=== PATIENT | female | born 1965 | race Caucasian/White ===

== ENCOUNTER 2016-08-29 15:42 | Outpatient (RCR) | payer BC, OTHER ==
[~2016-08-29 15:42] MED LIST: ESTR0.5T PO; LACT1CAP8 PO; NF-ESOM40C PO; RNT150T PO
== END 2016-09-20 15:21 | disposition home or self-care (01) ==
PROVIDERS: ATTEND Nurse Practitioner Family
DX: M51.16 Intervertebral disc disorders with radiculopathy, lumbar region (principal)

== ENCOUNTER → 2016-09-12 | Outpatient (CLI) | payer BC, OTHER ==
--- NOTE | 2016-09-12 09:26 | Diagnostic Imaging Report ---
Bilateral diagnostic mammogram. INDICATION: Followup asymmetry in the posterior aspect of the left CC projection. CAD is utilized. COMPARISON: 02/17/2016. FINDINGS: The breasts are composed of heterogeneously dense parenchyma which may decrease mammographic sensitivity. There is less prominent oval asymmetry in the posterior aspect of the left CC projection. In the left MLO view in the central aspect there is an oval asymmetry which is evaluated with focal compression view. This demonstrates less prominent oval asymmetry, and the true lateral view demonstrates no definitive correlating lesion. The right breast demonstrates no definite abnormality. The retroareolar portion of each breast demonstrates mildly dense parenchyma. IMPRESSION: Subcentimeter asymmetries in the left breast in the posterior central aspect more prominent at this time on the left MLO view. Ultrasound evaluation pending. ACR BI-RADS Category 0: Incomplete. (Needs additional imaging evaluation). Result letter will be mailed to the patient. Note: At least 10% of breast cancer is not imaged by mammography. Dictated by: Dictated on workstation # [id number]
--- NOTE | 2016-09-12 19:14 | Diagnostic Imaging Report ---
EXAM: Left breast ultrasound. INDICATION: Asymmetry seen along the posterior aspect of the left breast. FINDINGS: Clusters of cysts are seen, one collectively measuring 6 x 4 x 2 mm seen in the 3 o'clock zone 4 cm from the nipple and retroareolar mild duct ectasia is noted. No mass or other lesion of suspicious appearance is identified in the four quadrants retroareolar area. IMPRESSION: No suspicious mass. The findings above do not necessarily explain the mammographic abnormalities which could be related to summation artifact of parenchyma. Six-month follow-up left breast mammogram is recommended based on the increased prominence of the asymmetry on the left MLO view to insure no adverse development. ACR BI-RADS Category 3: Probably benign findings. Result letter will be mailed to the patient. Note: At least 10% of breast cancer is not imaged by mammography. Dictated by: Dictated on workstation # [id number]
== END ==
LOC: RAD 08:19
PROVIDERS: ATTEND Nurse Practitioner Family
DX: R92.8 Other abnormal and inconclusive findings on diagnostic imaging of breast (principal)
CPT/HCPCS: 76641; 77066

== ENCOUNTER 2016-09-23 08:01 | Outpatient (CLI) | payer BC, OTHER ==
[~2016-09-23] VITALS: Ht 175.3 cm; Wt 76.7 kg
[2016-09-23] MEDS ORDERED: TRIAMCINOLONE ACET (KENALOG-40) 40 MG/ML 1 ML VIAL ONE (08:13)
[2016-09-23] MEDS ORDERED: BUPIVACAINE 0.25% 30 ML (SENSORCAINE) VIAL ONE (08:13)
[2016-09-23 08:28] VITALS: BP 134/88
[2016-09-23 08:52] VITALS: BP 140/92
--- NOTE | 2016-09-23 09:15 | Pain Medicine-Procedure ---
Procedure Pre-Op/Post-Op Diagnosis Diagnosis: Disc disorder with radiculopathy, lumbar Indications for Operation Low back pain Attending Surgeon Darshan Procedure Date of Service: Sep 23, 2016 Procedure: Lumbar Epidural Steroid Injection at the L4-L5 level under Fluoroscopic Guidance Procedure: Patient was identified in the holding area. After risks, benefits, and alternatives were discussed with the patient, informed consent was obtained. Patient was brought to the fluoroscopy suite and placed prone on the procedure room table. A time out was performed. Vital signs were monitored throughout the procedure. The patients low back was prepped and draped in the usual sterile fashion. The patients skin was anesthetized using 2% Lidocaine. A Tuohy needle was inserted and advanced to the L4-L5 epidural space under fluoroscopic guidance using the loss of resistance technique and intermittent projection of fluoroscopy. There was no paresthesia with needle placement. The needle position was confirmed in both the AP and lateral view. After negative aspiration 2ml of contrast was injected under live fluoroscopy which showed good spread of the contrast in the epidural space at the appropriate level, there was no intravascular or subarachnoid spread. Again, after negative aspiration for heme or CSF, 2 ml of 0.25% Bupivicaine, 2ml of preservative free normal saline, and 80mg of Kenalog was injected. The needle was removed and a sterile bandage was placed and the patient was transferred to the recovery area in stable condition. After a brief period of observation, patient was discharged to home with no new neurological deficits and no apparent complications. Complications None VARINDER LOCKWOOD MD Sep 23, 2016 9:15 am
== END 2016-09-23 08:53 ==
LOC: CARD 08:01
PROVIDERS: ATTEND Pain Medicine Pain Medicine
DX: M51.16 Intervertebral disc disorders with radiculopathy, lumbar region (principal)
CPT/HCPCS: 62323

== ENCOUNTER → 2017-04-12 | Outpatient (CLI) | payer BC ==
--- NOTE | 2017-04-13 09:22 | Diagnostic Imaging Report ---
Digital mammogram left diagnostic. INDICATION: Followup exam. The bilateral diagnostic mammogram performed on 09/12/2016, noted a subcentimeter asymmetry in the posterior central aspect of the left breast. This is only well visualized on the MLO view. The ultrasound examination of this area performed on the same day failed to show any discrete solid or cystic mass. On this exam the asymmetric density in question is less conspicuous on the MLO view. It still cannot be identified with certainty on a small cyst which is subsequently resolved. The appearance of the left breast is otherwise no different. There is no primary or secondary sign of malignancy noted. IMPRESSION: 1. There is no evidence for malignancy. 2. The patient should have her annual bilateral screening mammogram on schedule in September of 2017. ACR BI-RADS Category 1: Negative. Result letter will be mailed to the patient. Note: At least 10% of breast cancer is not imaged by mammography. Dictated by: Dictated on workstation # [id number]
== END ==
LOC: RAD 14:32
PROVIDERS: ATTEND Nurse Practitioner Family
DX: N60.02 Solitary cyst of left breast (principal)

== ENCOUNTER → 2017-09-06 | Outpatient (CLI) | payer BC ==
--- NOTE | 2017-09-06 15:37 | Diagnostic Imaging Report ---
PROCEDURE: US Abdomen, limited. TECHNIQUE: Multiple realtime grayscale images were obtained over the abdomen in various projections. INDICATION: Left groin pain. FINDINGS: Sonographic interrogation of the left groin was performed both with and without Valsalva maneuver. No definite inguinal hernia is seen. No mass or fluid collection is detected. IMPRESSION: Unremarkable left groin ultrasound. Dictated by: Dictated on workstation # [id number]
== END ==
LOC: RAD 14:50
PROVIDERS: ATTEND Nurse Practitioner Family
DX: R10.30 Lower abdominal pain, unspecified (principal)
CPT/HCPCS: 76705

== ENCOUNTER 2019-08-26 05:50 | Outpatient (CLI) | payer BC ==
[~2019-08-26] VITALS: Ht 175.3 cm; Wt 74.5 kg
[2019-08-26] MEDS ORDERED: LACT1CAP28 PO (10:20)
[2019-08-26] MEDS ORDERED: ESOM40CA52 PO (10:20)
[2019-08-26] MEDS ORDERED: FLUT1DIS26 IH (10:25)
[2019-08-26] MEDS ORDERED: RT-ALBUINH IH (10:25)
[2019-08-26] MEDS ORDERED: CELE200C PO (10:25)
[2019-08-28] MEDS ORDERED: ACHD5005 PO (11:24)
== END 2019-08-26 10:29 | disposition home or self-care (01) ==
LOC: PREOP 05:50
PROVIDERS: ATTEND Surgery
DX: Z01.818 Encounter for other preprocedural examination (principal)

== ENCOUNTER 2020-10-17 21:24 | Emergency (ER) | payer SELFPAY ==
[~2020-10-17] VITALS: Ht 175.3 cm; Wt 72.5 kg
[~2020-10-17 21:24] MED LIST changes: +ACHD5005 PO; +CELE200C PO; +ESOM40CA52 PO; +FLUT1DIS26 IH; +LACT1CAP28 PO; +RT-ALBUINH IH
[2020-10-17 21:45] VITALS: BP 129/83
--- NOTE | 2020-10-17 22:08 | ED Integumentary General ---
General Stated Complaint: R LEG LACERATION Source: patient Exam Limitations: no limitations History of Present Illness Date Seen by Provider: Oct 17, 2020 Time Seen by Provider: 21:45 Initial Comments This is a well-appearing 55-year-old female who presents to the ER with complaints of bleeding varicose vein. States her cat accidentally scratched her causing her varicose vein to bleed and she has not been able to stop the bleeding with direct pressure. States incident occurred approximately 30 minutes prior to arrival. Has no other complaints. Does not take any anticoagulants or aspirin. Timing/Duration: just prior to arrival Allergies and Home Medications Allergies Coded Allergies: aspirin (Verified Allergy, Unknown, HIVES, CAN TAKE IBUPROFEN, 03/14/06) Home Medications Albuterol Sulfate 1 Puff Puff, 2 PUFF IH Q4H PRN for WHEEZING, (Reported) 1 PUFF = 90 MCG Celecoxib Unknown Strength Capsule, 1 TAB PO DAILY, (Reported) Esomeprazole Magnesium 40 Mg Capsule.dr, 40 MG PO DAILY, (Reported) Fluticasone/Salmeterol 1 Each Blst.w.dev, 1 EACH IH DAILY, (Reported) Hydrocodone Bit/Acetaminophen 1 Tab Tab, 1 TAB PO Q6H PRN for PAIN-MODERATE Prescribed by: BRANDY SORENSON on 08/28/19 1124 Lactobacillus Acidophilus 1 Each Capsule, 1 EACH PO DAILY, (Reported) Patient Home Medication List Home Medication List Reviewed: Yes Review of Systems Review of Systems Constitutional: no symptoms reported EENTM: no symptoms reported Respiratory: no symptoms reported Cardiovascular: no symptoms reported Gastrointestinal: no symptoms reported Genitourinary: no symptoms reported Musculoskeletal: no symptoms reported Skin: see HPI Psychiatric/Neurological: No Symptoms Reported Endocrine: No Symptoms Reported Past Gjgfcck-Nfaflr-Dvcgcf Hx Patient Social History Type Used: Cigarettes Recent Hopitalizations: No Immunizations Up To Date Date of Influenza Vaccine: May 07, 2019 Seasonal Allergies Seasonal Allergies: No Past Medical History Surgeries: Yes Hysterectomy Respiratory: Yes COPD Currently Using CPAP: No Currently Using BIPAP: No Cardiac: No Neurological: No Reproductive Disorders: No 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 Gastrointestinal: Yes Gastroesophageal Reflux Musculoskeletal: Yes Arthritis Endocrine: No HEENT: No Cancer: No Psychosocial: No Integumentary: No Blood Disorders: No Physical Exam Vital Signs Vital Signs - First Documented 10/17/20 21:45 Temp 36.6 Pulse 70 Resp 17 B/P (MAP) 129/83 (98) Pulse Ox 96 O2 Delivery Room Air Capillary Refill : General Appearance: WD/WN, no apparent distress HEENT: PERRL/EOMI, normal ENT inspection Neck: full range of motion, normal inspection Cardiovascular: regular rate, rhythm, no murmur Respiratory: lungs clear, normal breath sounds Neurologic/Psychiatric: alert, normal mood/affect, oriented x 3 Skin: normal color, warm/dry Skin Problem Location: other (distal aspect of right lateral thigh superficial 2mm abrasion over varicose vein) Progress/Results/Core Measures Results/Orders Vital Signs/I&O 10/17/20 21:45 Temp 36.6 Pulse 70 Resp 17 B/P (MAP) 129/83 (98) Pulse Ox 96 O2 Delivery Room Air Progress Progress Note : Progress Note Pt. examined and in no acute distress. Had bath towel with minimal dried blood over affected area. Removed towel and noted to have oozing from affected varicose vein. Applied direct pressure for apx. 5 minutes. Bleeding stopped. Applied ice pack for 20 mins to leg and then removed. No bleeding appreciated. Instructed her to extend and flex her leg to ensure resolution of bleed. Applied dressing to area and instructed to keep in place while sleeping. Reviewed discharge POC and she is agreeable with plan. Departure Impression Primary Impression: Bleeding from varicose vein Disposition: 01 HOME, SELF-CARE Condition: Improved Departure-Patient Inst. Decision time for Depature: 22:05 Referrals: KEESHA OLIVAREZ DO (PCP) Primary Care Physician ANNA CYR APRN (Family) Primary Care Physician Patient Instructions: Varicose Veins (DC) Add. Discharge Instructions: Plan: 1. Discharge home. 2. May use ice 20 minutes at a time to stop bleeding, if this does not help apply direct pressure without removing to check. 3. If you are unable to stop the bleeding, return to ED. 4. Return for any worsening or concerning symptoms. ANA MARÍA MACHADO APRN Oct 17, 2020 22:08
== END 2020-10-17 22:22 | disposition home or self-care (01) ==
LOC: EDUNIT# 21:24 → ER 21:26
DX: I83.899 Varicose veins of unspecified lower extremity with other complications (principal); J44.9 Chronic obstructive pulmonary disease, unspecified; K21.9 Gastro-esophageal reflux disease without esophagitis; Z88.8 Allergy status to other drugs, medicaments and biological substances
CPT/HCPCS: 99282

== ENCOUNTER 2020-12-11 21:16 | Emergency (ER) | payer SELFPAY ==
[~2020-12-11] VITALS: Ht 175.3 cm; Wt 73.0 kg
--- NOTE | 2020-12-11 21:47 | ED General ---
General Chief Complaint: Coughing Up Blood Stated Complaint: VOMITTING BLOOD Nursing Triage Note: PT AMB TO RM 3 WITH COMPLAINT OF SPITTING UP BLOOD. STATES STARTED THIS AM. STATES SHE HAS BEEN COUGHING FREQUENTLY, AND BLOOD COMES UP WHEN SHE COUGHS. Nursing Sepsis Screen: No Definite Risk Source of Information: Patient Exam Limitations: No Limitations History of Present Illness Date Seen by Provider: December 11, 2020 Time Seen by Provider: 21:30 Initial Comments Patient is a 55-year-old female who presents to the emergency department today with a chief complaint of about 24 hours of coughing up blood. Patient states that she has had increasing cough and noticed bloody sputum today. Patient states that she did wake up with a taste of blood in her mouth early this morning. She denies any fevers or chills. No recent URI symptoms. She has never had hemoptysis in the past. She is not on any blood thinners. She does have a fairly extensive smoking history. She uses Advair and albuterol inhalers on a daily basis. She denies vomiting blood, black or bloody stools. No other complaints of illness. All other review of systems reviewed and negative except as stated above. Timing/Duration: 24 Hours Severity: Moderate Associated Systoms: Cough; No Diaphoresis, No Fever/Chills; Nausea/Vomiting Allergies and Home Medications Allergies Coded Allergies: aspirin (Verified Allergy, Unknown, HIVES, CAN TAKE IBUPROFEN, 03/14/06) Home Medications Albuterol Sulfate 1 Puff Puff, 2 PUFF IH Q4H PRN for WHEEZING, (Reported) 1 PUFF = 90 MCG Celecoxib Unknown Strength Capsule, 1 TAB PO DAILY, (Reported) Esomeprazole Magnesium 40 Mg Capsule.dr, 40 MG PO DAILY, (Reported) Fluticasone/Salmeterol 1 Each Blst.w.dev, 1 EACH IH DAILY, (Reported) Hydrocodone Bit/Acetaminophen 1 Tab Tab, 1 TAB PO Q6H PRN for PAIN-MODERATE Prescribed by: BRANDY SORENSON on 08/28/19 1124 Lactobacillus Acidophilus 1 Each Capsule, 1 EACH PO DAILY, (Reported) Patient Home Medication List Home Medication List Reviewed: Yes Review of Systems Review of Systems Constitutional: see HPI EENTM: no symptoms reported Respiratory: cough, hemoptysis, phlegm Cardiovascular: no symptoms reported Gastrointestinal: no symptoms reported Genitourinary: no symptoms reported Musculoskeletal: no symptoms reported Skin: no symptoms reported All Other Systems Reviewed Negative Unless Noted: Yes Past Chohiwd-Qrpaql-Nycsxw Hx Patient Social History Alcohol Use: Regular Use Number of Drinks Today: 4 Alcohol Beverage of Choice: Beer Smoking Status: Current Everyday Smoker Type Used: Cigarettes Recent Infectious Disease Expo: No Recent Hopitalizations: No Immunizations Up To Date Tetanus Booster (TDap): Unknown Date of Influenza Vaccine: May 07, 2019 Seasonal Allergies Seasonal Allergies: No Past Medical History Surgeries: Yes Hysterectomy Respiratory: Yes COPD Currently Using CPAP: No Currently Using BIPAP: No Cardiac: No Neurological: No 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 0.0oz. [id number]; 23.00 BMI Method: General Appearance: No Apparent Distress, WD/WN Eyes: Bilateral Eye Normal Inspection, Bilateral Eye PERRL, Bilateral Eye EOMI HEENT: Pharynx Normal Neck: Full Range of Motion, Normal Inspection, Non Tender, Supple Respiratory: Lungs Clear, Normal Breath Sounds, No Accessory Muscle Use, No Respiratory Distress Cardiovascular: Regular Rate, Rhythm Gastrointestinal: Non Tender, Soft Extremity: Normal Capillary Refill, Normal Inspection Neurologic/Psychiatric: Alert, Oriented x3, No Motor/Sensory Deficits, Normal Mood/Affect Skin: Normal Color, Warm/Dry Progress/Results/Core Measures Suspected Sepsis Recent Fever Within 48 Hours: No Infection Criteria Present: None New/Unexplained Altered Menta: No Sepsis Screen: No Definite Risk SIRS Temperature: Pulse: 67 Respiratory Rate: 20 Laboratory Tests 12/11/20 21:55: White Blood Count 7.6 Blood Pressure 158 /87 Mean: 110 Laboratory Tests 12/11/20 21:55: Creatinine 0.74, INR Comment 0.9, Platelet Count 257, Total Bilirubin 0.2 Results/Orders Lab Results Laboratory Tests Test 12/11/20 21:55 Range/Units White Blood Count 7.6 4.3-11.0 10^3/uL Red Blood Count 4.10 3.80-5.11 10^6/uL Hemoglobin 13.2 11.5-16.0 g/dL Hematocrit 39 35-52 % Mean Corpuscular Volume 94 80-99 fL Mean Corpuscular Hemoglobin 32 25-34 pg Mean Corpuscular Hemoglobin Concent 34 32-36 g/dL Red Cell Distribution Width 12.5 10.0-14.5 % Platelet Count 257 130-400 10^3/uL Mean Platelet Volume 9.8 9.0-12.2 fL Immature Granulocyte % (Auto) 0 % Neutrophils (%) (Auto) 52 42-75 % Lymphocytes (%) (Auto) 37 12-44 % Monocytes (%) (Auto) 8 0-12 % Eosinophils (%) (Auto) 3 0-10 % Basophils (%) (Auto) 1 0-10 % Neutrophils # (Auto) 3.9 1.8-7.8 10^3/uL Lymphocytes # (Auto) 2.8 1.0-4.0 10^3/uL Monocytes # (Auto) 0.6 0.0-1.0 10^3/uL Eosinophils # (Auto) 0.2 0.0-0.3 10^3/uL Basophils # (Auto) 0.1 0.0-0.1 10^3/uL Immature Granulocyte # (Auto) 0.0 0.0-0.1 10^3/uL Prothrombin Time 12.6 12.2-14.7 SEC INR Comment 0.9 0.8-1.4 Activated Partial Thromboplast Time 29 24-35 SEC Sodium Level 137 135-145 MMOL/L Potassium Level 3.8 3.6-5.0 MMOL/L Chloride Level 103 98-107 MMOL/L Carbon Dioxide Level 22 21-32 MMOL/L Anion Gap 12 5-14 MMOL/L Blood Urea Nitrogen 9 7-18 MG/DL Creatinine 0.74 0.60-1.30 MG/DL Estimat Glomerular Filtration Rate > 60 BUN/Creatinine Ratio 12 Glucose Level 95 70-105 MG/DL Calcium Level 9.9 8.5-10.1 MG/DL Corrected Calcium 9.7 8.5-10.1 MG/DL Total Bilirubin 0.2 0.1-1.0 MG/DL Aspartate Amino Transf (AST/SGOT) 24 5-34 U/L Alanine Aminotransferase (ALT/SGPT) 24 0-55 U/L Alkaline Phosphatase 95 40-136 U/L Total Protein 6.8 6.4-8.2 GM/DL Albumin 4.3 3.2-4.5 GM/DL My Orders Orders - BRIAN ULLOA MD Ed Iv/Invasive Line Start (12/11/20 21:45) Cbc With Automated Diff (12/11/20 21:45) Protime With Inr (12/11/20 21:45) Partial Thromboplastin Time (12/11/20 21:45) Comprehensive Metabolic Panel (12/11/20 21:45) Chest 1 View, Ap/Pa Only (12/11/20 21:45) Ct Chest W (12/11/20 22:12) Iohexol Injection (Omnipaque 350 Mg/Ml 1 (12/11/20 22:30) Received Contrast (Hold Metformin- Contr (12/11/20 22:30) Ns (Ivpb) (Sodium Chloride 0.9% Ivpb Bag (12/11/20 22:30) Medications Given in ED Current Medications Medications Dose Ordered Sig/Homero Route Start Time Stop Time Status Last Admin Dose Admin Iohexol 100 ml ONCE ONCE IV 12/11/20 22:30 12/11/20 22:31 DC 12/11/20 22:46 74 ML Sodium Chloride 100 ml ONCE ONCE IV 12/11/20 22:30 12/11/20 22:31 DC 12/11/20 22:46 80 ML Vital Signs/I&O 12/11/20 12/11/20 21:25 21:25 Temp 36.2 Pulse 67 Resp 20 B/P (MAP) 158/87 (110) Pulse Ox 96 O2 Delivery Room Air Room Air Capillary Refill : Less Than 3 Seconds Blood Pressure Mean: 110 Progress Note : Time: 23:[address] of the chest with IV contrast shows COPD without evidence of infiltrate mass or obvious pulmonary embolus. Since the patient's hemoptysis just started today I am going to start her on some doxycycline. Suspected that the hemoptysis may be due to bronchitis. She most likely will end up needing bronchoscopy however. She is not currently having massive hemoptysis. Vital signs are stable. CBC is normal. Patient is strongly encouraged to quit smoking. Her has an appointment with their primary provider on Monday. I have instructed the patient to follow-up with Dr. Heredia on Monday. She is given good return precautions which include if she has further or worsening bloody sputum she needs to come back to the emergency department. Patient is comfortable with this plan of care. All questions are sought and answered. Patient is stable for discharge. Counseling-Symptomatic: 3-10 Minutes Follow-up with PCP to: Discuss Further Options Departure Impression Primary Impression: Hemoptysis, unspecified Additional Impression: COPD (chronic obstructive pulmonary disease) Qualified Codes: J44.9 - Chronic obstructive pulmonary disease, unspecified Disposition: HOME, SELF-CARE Condition: Stable (233) Departure-Patient Inst. Decision time for Depature: 23:31 Referrals: RAYNE HEREDIA MD (PCP/Family) Primary Care Physician Patient Instructions: Coughing up Blood Add. Discharge Instructions: Please try and quit smoking. Use your inhalers every 4-6 hours as needed for shortness of breath and cough. Take the antibiotics as prescribed until they are gone. Please follow-up with your primary care provider on Monday. Come back to the emergency room if you have persistent or worsening bloody sputum, shortness of breath, fevers or any other emergent concerning symptoms. Scripts Doxycycline Hyclate (Doxycycline Hyclate) 100 Mg Tablet 100 MG PO BID, #20 TAB 0 Refills Prov: BRIAN ULLOA MD 12/11/20 Copy Copies To 1: RAYNE HEREDIA MD, KATHRYN M MD December 11, 2020 21:47
[2020-12-11 22:01] LABS: BASOPHILS # (AUTO) 0.1 10^3/uL (0.0-0.1); BASOPHILS % (AUTO) 1 % (0-10); EOSINOPHILS # (AUTO) 0.2 10^3/uL (0.0-0.3); EOSINOPHILS % (AUTO) 3 % (0-10); HEMATOCRIT 39 % (35-52); HEMOGLOBIN 13.2 g/dL (11.5-16.0); LYMPHOCYTES # (AUTO) 2.8 10^3/uL (1.0-4.0); LYMPHOCYTES % (AUTO) 37 % (12-44); MEAN CORPUSCULAR HEMOGLOBIN 32 pg (25-34); MEAN CORPUSCULAR HGB CONC 34 g/dL (32-36); MEAN CORPUSCULAR VOLUME 94 fL (80-99); MEAN PLATELET VOLUME 9.8 fL (9.0-12.2); MONOCYTES # (AUTO) 0.6 10^3/uL (0.0-1.0); MONOCYTES % (AUTO) 8 % (0-12); NEUTROPHILS # (AUTO) 3.9 10^3/uL (1.8-7.8); NEUTROPHILS % (AUTO) 52 % (42-75); PLATELET COUNT 257 10^3/uL (130-400); WHITE BLOOD COUNT 7.6 10^3/uL (4.3-11.0)
[2020-12-11 22:17] LABS: INR 0.9 (0.8-1.4); PROTHROMBIN TIME PATIENT 12.6 SEC (12.2-14.7)
[2020-12-11 22:18] LABS: ALBUMIN 4.3 GM/DL (3.2-4.5); CHLORIDE 103 MMOL/L (98-107); POTASSIUM 3.8 MMOL/L (3.6-5.0); SODIUM 137 MMOL/L (135-145)
[2020-12-11 22:19] LABS: CALCIUM 9.9 MG/DL (8.5-10.1)
[2020-12-11 22:20] LABS: GLUCOSE 95 MG/DL (70-105)
[2020-12-11 22:21] LABS: TOTAL PROTEIN 6.8 GM/DL (6.4-8.2)
[2020-12-11 22:22] LABS: BILIRUBIN,TOTAL 0.2 MG/DL (0.1-1.0); CARBON DIOXIDE 22 MMOL/L (21-32)
[2020-12-11 22:24] LABS: ALKALINE PHOSPHATASE 95 U/L (40-136); CREATININE SERUM 0.74 MG/DL (0.60-1.30); GFR ESTIMATED > 60
[2020-12-11 22:25] LABS: BUN/CREATININE RATIO 12
[2020-12-11 22:27] LABS: ALANINE AMINOTRANSFERASE 24 U/L (0-55)
[2020-12-11] MEDS ORDERED: NS 100 ML (IVPB) BAG IV ONE (22:30)
[2020-12-11] MEDS ORDERED: IOHEXOL 350 MG/ML 100 ML (OMNIPAQUE 350) VIAL IV ONE (22:30)
[2020-12-11] MEDS ORDERED: HOLD METFORMIN - RECEIVED CONTRAST 20 ML VIAL IV SCH (22:30)
[2020-12-11] MEDS ORDERED: DOXY100T2 PO (23:33)
[2020-12-11 23:45] VITALS: BP 153/91
--- NOTE | 2020-12-12 07:40 | Diagnostic Imaging Report ---
EXAMINATION: CT chest with intravenous contrast. TECHNIQUE: Multiple contiguous axial images were obtained through the chest after the uneventful administration of intravenous contrast. All CT scans use one or more of the following dose optimizing techniques: automated exposure control, MA and/or KvP adjustment based on patient size and exam type or iterative reconstruction. HISTORY: hemoptysis COMPARISON: None available. FINDINGS: Thyroid: The thyroid is normal. Mediastinum: Heart size is normal without significant pericardial effusion. The aorta is normal in caliber. No suspicious lymphadenopathy. No findings to suggest pulmonary embolus. Lungs and airways: Background findings of COPD. Bibasilar atelectasis. No consolidation, pleural effusion, or pneumothorax. No suspicious pulmonary lesion. The airways are normal. Upper abdomen: The subphrenic structures are normal. Musculoskeletal: Degenerative changes of the spine without suspicious osseous lesion or compression fracture. IMPRESSION: 1. No acute abnormality in the chest. 2. Background findings of COPD. 3. Agree with preliminary interpretation. Dictated by: Dictated on workstation # [id number]
--- NOTE | 2020-12-12 08:30 | Diagnostic Imaging Report ---
EXAMINATION: Chest 1 view HISTORY: Cough. Hemoptysis. COMPARISON: 05/19/2009. FINDINGS: The lung volumes are normal. No focal consolidation is seen. No large pleural effusion or pneumothorax is seen. The cardiomediastinal silhouette is normal in size and contour. No acute osseous abnormality is seen. IMPRESSION: 1. No acute pleuroparenchymal process. Dictated by: Dictated on workstation # [id number]
== END 2020-12-11 23:44 | disposition home or self-care (01) ==
LOC: EDUNIT# 21:16 → ER 21:18
DX: R04.2 Hemoptysis (principal); J44.9 Chronic obstructive pulmonary disease, unspecified; K21.9 Gastro-esophageal reflux disease without esophagitis; F17.210 Nicotine dependence, cigarettes, uncomplicated; Z88.8 Allergy status to other drugs, medicaments and biological substances; Z79.899 Other long term (current) drug therapy
CPT/HCPCS: 36415; 71045; 71260; 80053; 85025; 85610; 85730

== ENCOUNTER 2021-10-15 00:55 | Emergency (ER) | payer OTHER ==
[~2021-10-15] VITALS: Ht 175 cm; Wt 73.0 kg
[~2021-10-15 00:55] MED LIST changes: +DOXY100T2 PO
[2021-10-15 01:02] VITALS: BP 152/104
[2021-10-15] MEDS ORDERED: KETOROLAC 60 MG/2 ML VIAL IM ONE (01:15)
--- NOTE | 2021-10-15 01:22 | ED Upper Extremity ---
General Chief Complaint: Upper Extremity Stated Complaint: RT SHOULDER PAIN Source: patient, spouse Exam Limitations: no limitations History of Present Illness Date Seen by Provider: Oct 15, 2021 Time Seen by Provider: 00:58 Initial Comments Patient to the ER by private conveyance with spouse and chief complaint for the last 6 days she has been having some pain in her right shoulder. She had a fall onto her back after slipping 6 to 7 days ago. She took some Tylenol yesterday and some ibuprofen earlier today as well as a Salonpas patch without significant control of her pain. She has not seen her primary care doctor. No prior injury to the shoulder or back. No numbness or tingling or inability to walk. No loss of control of bowel or bladder. She is not on a blood thinner. Allergies and Home Medications Allergies Coded Allergies: aspirin (Verified Allergy, Unknown, HIVES, CAN TAKE IBUPROFEN, 12/11/20) Patient Home Medication List Home Medication List Reviewed: Yes Albuterol Sulfate (Proair Hfa) 1 Puff Puff, 2 PUFF IH Q4H PRN for WHEEZING, (Reported) Entered as Reported by: AKIKO ENCISO on 08/26/19 1025 Celecoxib (Celebrex) Unknown Strength Capsule, 1 TAB PO DAILY, (Reported) Entered as Reported by: AKIKO ENCISO on 08/26/19 1025 Cyclobenzaprine HCl (Cyclobenzaprine HCl) 10 Mg Tablet, 10 MG PO Q8H PRN for SPASMS Prescribed by: PETER AMOR on 10/15/21 0140 Doxycycline Hyclate (Doxycycline Hyclate) 100 Mg Tablet, 100 MG PO BID Prescribed by: BRIAN ULLOA on 12/11/20 2333 Esomeprazole Magnesium (Esomeprazole Magnesium) 40 Mg Capsule.dr, 40 MG PO DAILY, (Reported) Entered as Reported by: AKIKO ENCISO on 08/26/19 1020 Fluticasone/Salmeterol (Advair 250-50 Diskus) 1 Each Blst.w.dev, 1 EACH IH DAILY, (Reported) Entered as Reported by: AKIKO ENCISO on 08/26/19 1025 Hydrocodone Bit/Acetaminophen (Lortab 5 Mg Tablet) 1 Tab Tab, 1 TAB PO Q6H PRN for PAIN-MODERATE Prescribed by: BRANDY SORENSON on 08/28/19 1124 Hydrocodone/Acetaminophen (Hydrocodone-Acetamin 5-325 mg) 1 Each Tablet, 1 TAB PO Q4H PRN for PAIN-MODERATE (5-7) Prescribed by: JANELLE BAIG on 10/15/21 1138 Lactobacillus Acidophilus (Acidophilus) 1 Each Capsule, 1 EACH PO DAILY, (Reported) Entered as Reported by: AKIKO ENCISO on 08/26/19 1020 Naproxen (Naprosyn) 500 Mg Tablet, 500 MG PO BID Prescribed by: PETER AMOR on 10/15/21 0140 Potassium Chloride (Potassium Chloride) 20 Meq Tablet.er, 20 MEQ PO BID Prescribed by: JANELLE BAIG on 10/15/21 1138 Review of Systems Constitutional: No chills, No diaphoresis EENTM: No ear discharge, No ear pain Respiratory: No cough, No short of breath Cardiovascular: No chest pain, No palpitations Gastrointestinal: No abdominal pain, No nausea Genitourinary: No discharge, No dysuria Musculoskeletal: see HPI; No back pain; joint pain All Other Systems Reviewed Negative Unless Noted: Yes Past Zcbihqr-Cfptxr-Qkpizh Hx Patient Social History Tobacco Use?: Yes Tobacco type used: Cigarettes (Half pack per day) Substance use?: No Alcohol Use?: Yes Alcohol Frequency: Several times a month Immunizations Up To Date Tetanus Booster (TDap): Unknown Seasonal Allergies Seasonal Allergies: No Past Medical History Surgeries: Yes Hysterectomy Respiratory: Yes COPD Currently Using CPAP: No Currently Using BIPAP: No Cardiac: No Neurological: No Reproductive Disorders: No 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 0.0oz. [id number]; 23.00 BMI Method: General Appearance: WD/WN, mild distress HEENT: PERRL/EOMI, pharynx normal Neck: non-tender, full range of motion, supple, normal inspection Cardiovascular: normal peripheral pulses, regular rate, rhythm Respiratory: no respiratory distress, no accessory muscle use Back: normal inspection, no vertebral tenderness Shoulder: normal inspection, bone tenderness (Over the lateral scapula and proximal right glenohumeral joint without crepitus, edema, joint swelling, erythema, induration. No tenderness or pain over the AC joint or clavicle on the right side.), limited ROM (Painful range of motion abduction of the right shoulder.) Elbow/Forearm: normal inspection, non-tender, no evidence of injury, normal ROM, Right Wrist: Yes normal inspection, Yes non-tender, Yes no evidence of injury, Yes normal ROM Hand: normal inspection, non-tender, no evidence of injury, normal ROM, Right Neurologic/Tendon: normal sensation, normal motor functions, normal tendon functions, responds to pain Neurologic/Psychiatric: no motor/sensory deficits, alert, normal mood/affect, oriented x 3 Skin: normal color, warm/dry Progress/Results/Core Measures Results/Orders My Orders Medications Given in ED Vital Signs/I&O Progress Progress Note : Time: 01:24 Progress Note Toradol and plain films of her right shoulder. Diagnostic Imaging Diagonstic Imaging: Xray Plain Films/CT/US/NM/MRI: other (Right shoulder) Comments No acute osseous fracture or dislocation. Lung haskins are unremarkable. Soft tissues unremarkable on a 3 view radiograph. [facility] [place], [place] NAME: CARLOS MANUEL [facility]STIAN [facility] REC#: [id number] PT STATUS: DEP ER : 1965 PHYSICIAN: PETER AMOR MD ADMIT DATE: 10/15/21/ER Signed Date of Exam:10/15/21 SHOULDER, RIGHT, 3 VIEWS HISTORY: Fall one week ago, right shoulder pain. TECHNIQUE: 3 views of the right shoulder. COMPARISON: None FINDINGS: No acute fracture or dislocation is seen in the right shoulder. Alignment is normal. There are mild degenerative changes in the right shoulder. A bone island is noted at the humeral head. IMPRESSION: 1. No acute osseous abnormalities seen in the right shoulder. Dictated by: Dictated on workstation # [id number] Dict: 10/15/21 0641 Trans: 10/15/21 0739 [facility] [id number] Interpreted by: GOSIA ANTUNEZ MD Electronically signed by: GOSIA ANTUNEZ MD 10/15/21 0739 Reviewed: Reviewed by Me Departure Impression Primary Impression: Contusion of shoulder, right Qualified Codes: S40.011A - Contusion of right shoulder, initial encounter Disposition: HOME, SELF-CARE Condition: Stable Departure-Patient Inst. Decision time for Depature: 01:34 Referrals: RAYNE HARRIS MD (PCP/Family) Primary Care Physician Patient Instructions: Shoulder Pain (DC) Add. Discharge Instructions: Heat, topical creams such as capsaicin oil, icy hot etc. Consider calling [facility] physical therapy at [phone] for a examination of your right shoulder. Follow-up with your primary care doctor if not seeing some improvement in a week or 2. Tylenol 1000 mg every 8 hours as necessary for pain. Naprosyn 500 mg twice a day on a scheduled basis for at least 1 to 2 weeks for anti-inflammatory effect of your right shoulder. Cyclobenzaprine 1 tablet every 8 hours as necessary for muscle spasms in your right shoulder area. Will cause drowsiness. May cut the tablet in half for excessive drowsiness. Do not mix with alcohol. All discharge instructions reviewed with patient and/or family. Voiced understanding. Scripts Cyclobenzaprine HCl (Cyclobenzaprine HCl) 10 Mg Tablet 10 MG PO Q8H PRN for SPASMS, #15 TAB 0 Refills Prov: PETER AMOR 10/15/21 Naproxen (Naprosyn) 500 Mg Tablet 500 MG PO BID for 14 Days, #30 TAB 0 Refills Prov: PETER AMOR 10/15/21 Work/School Note: Work Release Form Date Seen in the Emergency Department: Oct 15, 2021 Return to Work: Oct 16, 2021 Restrictions: Need Release from Doctor Other Restrictions Listed Below: Do not lift more than 20 pounds with the right upper extremity until 10/25. PETER AMOR Oct 15, 2021 01:22
[2021-10-15] MEDS ORDERED: CYCL10TA25 PO (01:40)
[2021-10-15] MEDS ORDERED: NAPR-1071 PO (01:40)
[2021-10-15] MEDS ORDERED: CYCLOBENZAPRINE 10 MG (FLEXERIL) TAB PO ONE (01:45)
[2021-10-15] MEDS ORDERED: ORPHENADRINE 60 MG/2 ML (NORFLEX) AMP (ED ONLY) IM ONE (01:45)
--- NOTE | 2021-10-15 06:43 | Diagnostic Imaging Report ---
HISTORY: Fall one week ago, right shoulder pain. TECHNIQUE: 3 views of the right shoulder. COMPARISON: None FINDINGS: No acute fracture or dislocation is seen in the right shoulder. Alignment is normal. There are mild degenerative changes in the right shoulder. A bone island is noted at the humeral head. IMPRESSION: 1. No acute osseous abnormalities seen in the right shoulder. Dictated by: Dictated on workstation # [id number]
[2021-10-15] MEDS ORDERED: POTA-51 PO (11:38)
[2021-10-15] MEDS ORDERED: ACHD5005 PO (11:38)
== END 2021-10-15 01:45 | disposition home or self-care (01) ==
LOC: EDUNIT# 00:55 → ER 00:58
DX: S40.011A Contusion of right shoulder, initial encounter (principal); F17.210 Nicotine dependence, cigarettes, uncomplicated; W01.0XXA Fall on same level from slipping, tripping and stumbling without subsequent striking against object, initial encounter
CPT/HCPCS: 73030

== ENCOUNTER 2021-10-15 10:33 | Emergency (ER) | payer OTHER ==
[~2021-10-15] VITALS: Ht 175.3 cm; Wt 66.2 kg
[~2021-10-15 10:33] MED LIST changes: +CYCL10TA25 PO; +NAPR-1071 PO
[2021-10-15] MEDS ORDERED: HYDROcodone/APAP 5 MG/325 MG (LORTAB) TAB PO ONE (10:45)
--- NOTE | 2021-10-15 10:46 | ED Chest Pain ---
General Stated Complaint: CHEST PAIN Source: patient, EMS Exam Limitations: no limitations History of Present Illness Date Seen by Provider: Oct 15, 2021 Time Seen by Provider: 10:41 Initial Comments To ER by EMS from [facility] with reports of right-sided chest pain x1 week. At the onset of this pain she fell landing on the right side. She has a bruise to the right breast. It is tender to palpation. The pain radiates down the right arm all the way to the fingertips and is described as a tingling sensation. She was seen here last night for the same had x-rays and was given a prescription for naproxen and Flexeril. Denies any improvement in pain. She went to [facility] for follow-up today and because of the complaint of chest pain was referred back to the emergency room. She was given 324 mg of aspirin. 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 NTG SL GORE INSERTER: No Associated Symptoms: denies symptoms Allergies and Home Medications Allergies Coded Allergies: aspirin (Verified Allergy, Unknown, HIVES, CAN TAKE IBUPROFEN, 12/11/20) Patient Home Medication List Home Medication List Reviewed: Yes Albuterol Sulfate (Proair Hfa) 1 Puff Puff, 2 PUFF IH Q4H PRN for WHEEZING, (Reported) Entered as Reported by: AKIKO ENCISO on 08/26/19 1025 Celecoxib (Celebrex) Unknown Strength Capsule, 1 TAB PO DAILY, (Reported) Entered as Reported by: AKIKO ENCISO on 08/26/19 1025 Cyclobenzaprine HCl (Cyclobenzaprine HCl) 10 Mg Tablet, 10 MG PO Q8H PRN for SPASMS Prescribed by: PETER AMOR on 10/15/21 0140 Doxycycline Hyclate (Doxycycline Hyclate) 100 Mg Tablet, 100 MG PO BID Prescribed by: BRIAN ULLOA on 12/11/20 2333 Esomeprazole Magnesium (Esomeprazole Magnesium) 40 Mg Capsule.dr, 40 MG PO DAILY, (Reported) Entered as Reported by: AKIKO ENCISO on 08/26/19 1020 Fluticasone/Salmeterol (Advair 250-50 Diskus) 1 Each Blst.w.dev, 1 EACH IH DAILY, (Reported) Entered as Reported by: AKIKO ENCISO on 08/26/19 1025 Hydrocodone Bit/Acetaminophen (Lortab 5 Mg Tablet) 1 Tab Tab, 1 TAB PO Q6H PRN for PAIN-MODERATE Prescribed by: BRANDY SORENSON on 08/28/19 1124 Hydrocodone/Acetaminophen (Hydrocodone-Acetamin 5-325 mg) 1 Each Tablet, 1 TAB PO Q4H PRN for PAIN-MODERATE (5-7) Prescribed by: JANELLE BAIG on 10/15/21 1138 Lactobacillus Acidophilus (Acidophilus) 1 Each Capsule, 1 EACH PO DAILY, (Reported) Entered as Reported by: AKIKO ENCISO on 08/26/19 1020 Naproxen (Naprosyn) 500 Mg Tablet, 500 MG PO BID Prescribed by: PETER AMOR on 10/15/21 0140 Potassium Chloride (Potassium Chloride) 20 Meq Tablet.er, 20 MEQ PO BID Prescribed by: JANELLE BAIG on 10/15/21 1138 Review of Systems Review of Systems Constitutional: see HPI EENTM: No Symptoms Reported Respiratory: No Symptoms Reported Cardiovascular: See HPI, Chest Pain Gastrointestinal: No Symptoms Reported Genitourinary: No Symptoms Reported Musculoskeletal: no symptoms reported Skin: no symptoms reported Psychiatric/Neurological: No Symptoms Reported Endocrine: No Symptoms Reported Hematologic/Lymphatic: No Symptoms Reported Past Nzmpxld-Ebgqqn-Hleyto Hx Immunizations Up To Date Tetanus Booster (TDap): Unknown Seasonal Allergies Seasonal Allergies: No Past Medical History Surgery/Hospitalization HX: hysterectomy, copd, gerd Surgeries: Yes Hysterectomy Respiratory: Yes COPD Currently Using CPAP: No Currently Using BIPAP: No Cardiac: No Neurological: No 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 0.0oz. 76.190696aa; 23.00 BMI Method: General Appearance: No Apparent Distress, WD/WN HEENT: PERRL/EOMI, Normal ENT Inspection Neck: Full Range of Motion, Normal Inspection Respiratory: Normal Breath Sounds, No Accessory Muscle Use, No Respiratory Distress Cardiovascular: Regular Rate, Rhythm, Normal Peripheral Pulses, Other (The right chest wall just superior to the areola has a small brownish colored bruise about the size of a quarter. The right pectoralis is tender to palpation into the right shoulder.) Gastrointestinal: Normal Bowel Sounds, Non Tender, Soft Extremity: Normal Capillary Refill, Normal Inspection Neurologic/Psychiatric: Alert, Oriented x3 Skin: Normal Color, Warm/Dry Progress/Results/Core Measures Results/Orders Lab Results Laboratory Tests Test 10/15/21 10:39 Range/Units White Blood Count 8.4 4.3-11.0 10^3/uL Red Blood Count 4.07 3.80-5.11 10^6/uL Hemoglobin 13.0 11.5-16.0 g/dL Hematocrit 38 35-52 % Mean Corpuscular Volume 92 80-99 fL Mean Corpuscular Hemoglobin 32 25-34 pg Mean Corpuscular Hemoglobin Concent 35 32-36 g/dL Red Cell Distribution Width 12.8 10.0-14.5 % Platelet Count 330 130-400 10^3/uL Mean Platelet Volume 9.4 9.0-12.2 fL Immature Granulocyte % (Auto) 0 % Neutrophils (%) (Auto) 72 42-75 % Lymphocytes (%) (Auto) 19 12-44 % Monocytes (%) (Auto) 8 0-12 % Eosinophils (%) (Auto) 0 0-10 % Basophils (%) (Auto) 1 0-10 % Neutrophils # (Auto) 6.0 1.8-7.8 10^3/uL Lymphocytes # (Auto) 1.6 1.0-4.0 10^3/uL Monocytes # (Auto) 0.7 0.0-1.0 10^3/uL Eosinophils # (Auto) 0.0 0.0-0.3 10^3/uL Basophils # (Auto) 0.1 0.0-0.1 10^3/uL Immature Granulocyte # (Auto) 0.0 0.0-0.1 10^3/uL Prothrombin Time 12.7 12.2-14.7 SEC INR Comment 0.9 0.8-1.4 Activated Partial Thromboplast Time 28 24-35 SEC Sodium Level 137 135-145 MMOL/L Potassium Level 2.9 L 3.6-5.0 MMOL/L Chloride Level 100 98-107 MMOL/L Carbon Dioxide Level 23 21-32 MMOL/L Anion Gap 14 5-14 MMOL/L Blood Urea Nitrogen 5 L 7-18 MG/DL Creatinine 0.66 0.60-1.30 MG/DL Estimat Glomerular Filtration Rate 104 BUN/Creatinine Ratio 8 Glucose Level 121 H 70-105 MG/DL Calcium Level 10.5 H 8.5-10.1 MG/DL Corrected Calcium 10.3 H 8.5-10.1 MG/DL Magnesium Level 1.9 1.6-2.4 MG/DL Total Bilirubin 0.5 0.1-1.0 MG/DL Aspartate Amino Transf (AST/SGOT) 20 5-34 U/L Alanine Aminotransferase (ALT/SGPT) 23 0-55 U/L Alkaline Phosphatase 72 40-136 U/L Myoglobin 78.2 10.0-92.0 NG/ML Troponin I < 0.028 <0.028 NG/ML B-Type Natriuretic Peptide 126.6 H <100.0 PG/ML Total Protein 6.7 6.4-8.2 GM/DL Albumin 4.2 3.2-4.5 GM/DL My Orders Orders - JANELLE BAIG APRN Cbc With Automated Diff (10/15/21 10:39) Magnesium (10/15/21 10:39) Chest 1 View, Ap/Pa Only (10/15/21 10:39) Ekg Tracing (10/15/21 10:39) Comprehensive Metabolic Panel (10/15/21 10:39) Myoglobin Serum (10/15/21 10:39) Protime With Inr (10/15/21 10:39) Partial Thromboplastin Time (10/15/21 10:39) O2 (10/15/21 10:39) Monitor-Rhythm Ecg Trace Only (10/15/21 10:39) Lipid Panel (10/16/21 06:00) Ed Iv/Invasive Line Start (10/15/21 10:39) Bnp Agustín (10/15/21 10:39) Troponin I Agustín (10/15/21 10:39) Hydrocodone/Apap 5/325 Tablet (Lortab 5 (10/15/21 10:45) Potassium Chloride (Tablet) (K Dur Table (10/15/21 11:45) Ketorolac Injection (Toradol Injection) (10/15/21 11:45) Fentanyl Inj (Sublimaze Injection) (10/15/21 11:45) Medications Given in ED Current Medications Medications Dose Ordered Sig/Homero Route Start Time Stop Time Status Last Admin Dose Admin Acetaminophen/ Hydrocodone Bitart 1 ea ONCE ONCE PO 10/15/21 10:45 10/15/21 10:46 DC 10/15/21 10:59 1 EA Vital Signs/I&O 10/15/21 10:33 Temp 36.4 Pulse 80 Resp 19 B/P (MAP) 161/84 (109) O2 Delivery Room Air Departure Communication (Admissions) Ek normal intervals G shows sinus rhythm at [address] segment changes no ectopy NAME: CARLOS MANUEL [facility] REC#: [id number] PT STATUS: REG ER : 1965 PHYSICIAN: JANELLE BAIG APRN ADMIT DATE: 10/15/21/ER Draft Date of Exam:10/15/21 CHEST 1 VIEW, AP/PA ONLY INDICATION: Chest pain. TIME OF EXAM: 10:44 AM CORRELATION is made with prior chest from 12/11/2020. FINDINGS: The heart size is normal. The pulmonary vascularity is unremarkable. The lungs are clear. No infiltrate, effusion or pneumothorax is detected. IMPRESSION: No acute cardiopulmonary process is detected. 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 Decision time for Depature: 10:45 Referrals: RAYNE HARRIS MD (PCP/Family) Primary Care Physician Patient Instructions: Chest Pain That Is Not Caused by the Heart (DC), Burners or Stingers (DC) Add. Discharge Instructions: 1. Pain medication as directed. Potassium supplement as directed. Return to ER for any concerns. Follow-up with primary care next week. Scripts Potassium Chloride (Potassium Chloride) 20 Meq Tablet.er 20 MEQ PO BID, #10 TAB Prov: JANELLE BAIG APRN 10/15/21 Hydrocodone/Acetaminophen (Hydrocodone-Acetamin 5-325 mg) 1 Each Tablet 1 TAB PO Q4H PRN for PAIN-MODERATE (5-7), #10 TAB Prov: JANELLE BAIG APRN 10/15/21 JANELLE BAIG APRN Oct 15, 2021 10:46
[2021-10-15 10:49] LABS: BASOPHILS # (AUTO) 0.1 10^3/uL (0.0-0.1); BASOPHILS % (AUTO) 1 % (0-10); EOSINOPHILS % (AUTO) 0 % (0-10); HEMATOCRIT 38 % (35-52); LYMPHOCYTES # (AUTO) 1.6 10^3/uL (1.0-4.0); LYMPHOCYTES % (AUTO) 19 % (12-44); MEAN CORPUSCULAR HEMOGLOBIN 32 pg (25-34); MEAN CORPUSCULAR HGB CONC 35 g/dL (32-36); MEAN CORPUSCULAR VOLUME 92 fL (80-99); MEAN PLATELET VOLUME 9.4 fL (9.0-12.2); MONOCYTES # (AUTO) 0.7 10^3/uL (0.0-1.0); MONOCYTES % (AUTO) 8 % (0-12); NEUTROPHILS % (AUTO) 72 % (42-75); PLATELET COUNT 330 10^3/uL (130-400); WHITE BLOOD COUNT 8.4 10^3/uL (4.3-11.0)
--- NOTE | 2021-10-15 10:54 | Diagnostic Imaging Report ---
INDICATION: Chest pain. TIME OF EXAM: 10:44 AM CORRELATION is made with prior chest from 12/11/2020. FINDINGS: The heart size is normal. The pulmonary vascularity is unremarkable. The lungs are clear. No infiltrate, effusion or pneumothorax is detected. IMPRESSION: No acute cardiopulmonary process is detected. Dictated by: Dictated on workstation # [id number]
[2021-10-15 11:04] LABS: ALBUMIN 4.2 GM/DL (3.2-4.5); POTASSIUM 2.9 MMOL/L (3.6-5.0)
[2021-10-15 11:05] LABS: CALCIUM 10.5 MG/DL (8.5-10.1)
[2021-10-15 11:06] LABS: TOTAL PROTEIN 6.7 GM/DL (6.4-8.2)
[2021-10-15 11:07] LABS: INR 0.9 (0.8-1.4); PROTHROMBIN TIME PATIENT 12.7 SEC (12.2-14.7)
[2021-10-15 11:08] LABS: BILIRUBIN,TOTAL 0.5 MG/DL (0.1-1.0)
[2021-10-15 11:10] LABS: CREATININE SERUM 0.66 MG/DL (0.60-1.30)
[2021-10-15 11:13] LABS: MAGNESIUM 1.9 MG/DL (1.6-2.4)
[2021-10-15] MEDS ORDERED: ACHD5005 PO (11:38)
[2021-10-15] MEDS ORDERED: POTA-51 PO (11:38)
[2021-10-15] MEDS ORDERED: fentaNYL INJ 100 MCG/2 ML AMP IVP ONE (11:45)
[2021-10-15] MEDS ORDERED: KCL 20 MEQ TAB (K-DUR) PO ONE (11:45)
[2021-10-15] MEDS ORDERED: KETOROLAC 30 MG/ML VIAL IVP ONE (11:45)
[2021-10-15 12:22] VITALS: BP 137/79
== END 2021-10-15 12:22 | disposition home or self-care (01) ==
LOC: EDUNIT# 10:33 → ER 10:34
DX: S20.211A Contusion of right front wall of thorax, initial encounter (principal); G54.0 Brachial plexus disorders; E87.6 Hypokalemia; W18.39XA Other fall on same level, initial encounter
CPT/HCPCS: 36415; 71045; 80053; 83735; 83874; 83880; 84484; 85025; 85610; 85730; 93005; 93041

== ENCOUNTER 2021-11-27 16:20 | Emergency (ER) | payer OTHER ==
[~2021-11-27] VITALS: Ht 175.2 cm; Wt 61.4 kg
[~2021-11-27 16:20] MED LIST changes: +POTA-51 PO
--- NOTE | 2021-11-27 17:11 | ED Psychosocial ---
General Chief Complaint: Substance Abuse Stated Complaint: SHAKING/ANXIOUS/CHILLS/POSS MED WITHDRAWAL Nursing Triage Note: Pt ambulatory into ER with complaint of feeling Anxious and fearful about being out of Buprenorphine. Pt admits to misuse of medication recently, and states that her PCP Coleen Harris refuses to refill it until Monday when she has an appointment. Pt didn't state how long she has been out. Pt states that she did get some zofran and one other drug to try to help her through the withdrawal symptoms. Pt states that she hurts all over. Pt states that she has chronic back, knee, feet, and shoulder pain. History of Present Illness Date Seen by Provider: Nov 27, 2021 Time Seen by Provider: 16:50 Initial Comments 56 year old female presents for anxiety and fear related to Suboxone withdrawal. She has been on this for multiple years, it is managed by Dr. Rayne Harris. She recently took additional doses beyond her prescription and is not able to get a refill until 12/01/2021. Timing/Duration: intermittent Severity: mild Associated Symptoms: anxiety, impaired concentration Allergies and Home Medications Allergies Coded Allergies: aspirin (Verified Allergy, Unknown, HIVES, CAN TAKE IBUPROFEN, 12/11/20) Patient Home Medication List Home Medication List Reviewed: Yes Albuterol Sulfate (Proair Hfa) 1 Puff Puff, 2 PUFF IH Q4H PRN for WHEEZING, (Reported) Entered as Reported by: AKIKO ENCISO on 08/26/19 1025 Celecoxib (Celebrex) Unknown Strength Capsule, 1 TAB PO DAILY, (Reported) Entered as Reported by: AKIKO ENCISO on 08/26/19 1025 Cyclobenzaprine HCl (Cyclobenzaprine HCl) 10 Mg Tablet, 10 MG PO Q8H PRN for SPASMS Prescribed by: PETER AMOR on 10/15/21 0140 Doxycycline Hyclate (Doxycycline Hyclate) 100 Mg Tablet, 100 MG PO BID Prescribed by: BRIAN ULLOA on 12/11/20 2333 Esomeprazole Magnesium (Esomeprazole Magnesium) 40 Mg Capsule., 40 MG PO DAILY, (Reported) Entered as Reported by: AKIKO ENCISO on 08/26/19 1020 Fluticasone/Salmeterol (Advair 250-50 Diskus) 1 Each Blst.w.dev, 1 EACH IH DAILY, (Reported) Entered as Reported by: AKIKO ENCISO on 08/26/19 1025 Hydrocodone Bit/Acetaminophen (Lortab 5 Mg Tablet) 1 Tab Tab, 1 TAB PO Q6H PRN for PAIN-MODERATE Prescribed by: BRANDY SORENSON on 08/28/19 1124 Hydrocodone/Acetaminophen (Hydrocodone-Acetamin 5-325 mg) 1 Each Tablet, 1 TAB PO Q4H PRN for PAIN-MODERATE (5-7) Prescribed by: JANELLE BAIG on 10/15/21 1138 Hydroxyzine Pamoate (Vistaril) 25 Mg Capsule, 25 MG PO Q8H PRN for ANXIETY Prescribed by: MARI RAMIREZ on 11/27/21 1728 Lactobacillus Acidophilus (Acidophilus) 1 Each Capsule, 1 EACH PO DAILY, (Reported) Entered as Reported by: AKIKO ENCISO on 08/26/19 1020 Naproxen (Naprosyn) 500 Mg Tablet, 500 MG PO BID Prescribed by: PETER AMOR on 10/15/21 0140 Potassium Chloride (Potassium Chloride) 20 Meq Tablet.er, 20 MEQ PO BID Prescribed by: JANELLE BAIG on 10/15/21 1138 Review of Systems Constitutional: no symptoms reported, see HPI Psychiatric/Neurological: See HPI, Anxiety, Emotional Problems; Denies Tremors All Other Systems Reviewed Negative Unless Noted: Yes Past Eqctqqd-[id number]-[id number] Hx Patient Social History Tobacco Use?: Yes Tobacco type used: Cigarettes Smoking Status: Current Everyday Smoker Use of E-Cig and/or Vaping dev: No Substance use?: No Alcohol Use?: Yes Alcohol type: Beer Alcohol Frequency: Couple times a week Pt feels they are or have been: No Immunizations Up To Date Tetanus Booster (TDap): Unknown Influenza Vaccine Up-to-Date: Yes; Up-to-Date First/Initial COVID19 Vaccinat: 08/28 Second COVID19 Vaccination Bobby: 08/28 Third COVID19 Vaccination Date: 08/28 Seasonal Allergies Seasonal Allergies: No Past Medical History Surgery/Hospitalization HX: hysterectomy, copd, gerd Surgeries: Yes Hysterectomy Respiratory: Yes COPD Currently Using CPAP: No Currently Using BIPAP: No Cardiac: No Neurological: No Reproductive Disorders: No 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 0.0oz. [id number]; 20.00 BMI Method: General Appearance: WD/WN, no apparent distress Respiratory: chest non-tender, lungs clear, normal breath sounds Cardiovascular: normal peripheral pulses, regular rate, rhythm Gastrointestinal: normal bowel sounds, non tender, soft Neurologic/Psychiatric: no motor/sensory deficits, alert, normal mood/affect, oriented x 3 Appearance/Memory: appropriate appearance, appropriate insight, neat Behavior/Eye Contact: cooperative, good eye contact, normal speech Thoughts/Hallucinations: normal thought pattern, no apparent hallucination Skin: normal color, warm/dry Progress/Results/Core Measures Results/Orders Lab Results Laboratory Tests Test 11/27/21 16:57 11/27/21 17:05 Range/Units Urine Color YELLOW Urine Clarity CLEAR Urine pH 7.0 5-9 Urine Specific [place] <=1.005 1.016-1.022 Urine Protein NEGATIVE NEGATIVE Urine Glucose (UA) NEGATIVE NEGATIVE Urine Ketones NEGATIVE NEGATIVE Urine Nitrite NEGATIVE NEGATIVE Urine Bilirubin NEGATIVE NEGATIVE Urine Urobilinogen 0.2 < = 1.0 MG/DL Urine Leukocyte Esterase NEGATIVE NEGATIVE Urine RBC (Auto) NEGATIVE NEGATIVE Urine RBC NONE /HPF Urine WBC NONE /HPF Urine Crystals NONE /LPF Urine Bacteria NEGATIVE /HPF Urine Casts NONE /LPF Urine Mucus NEGATIVE /LPF Urine Culture Indicated NO Urine Opiates Screen NEGATIVE NEGATIVE Urine Oxycodone Screen NEGATIVE NEGATIVE Urine Methadone Screen NEGATIVE NEGATIVE Urine Propoxyphene Screen NEGATIVE NEGATIVE Urine Barbiturates Screen NEGATIVE NEGATIVE Ur Tricyclic Antidepressants Screen NEGATIVE NEGATIVE Urine Phencyclidine Screen NEGATIVE NEGATIVE Urine Amphetamines Screen NEGATIVE NEGATIVE Urine Methamphetamines Screen NEGATIVE NEGATIVE Urine Benzodiazepines Screen NEGATIVE NEGATIVE Urine Cocaine Screen NEGATIVE NEGATIVE Urine Cannabinoids Screen NEGATIVE NEGATIVE My Orders Orders - MARI RAMRIEZ Drug Screen Stat (Urine) (11/27/21 16:41) Ua Culture If Indicated (11/27/21 16:41) Drug Screen 9 Serum (Send Out) (11/27/21 16:41) Hydroxyzine Cap/Tab (Vistaril) (11/27/21 17:24) Vital Signs/I&O 11/27/21 11/27/21 16:40 17:45 Temp 36.4 36.4 Pulse 77 88 Resp 22 20 B/P (MAP) 149/96 (113) 132/79 Pulse Ox 96 97 O2 Delivery Room Air Room Air Blood Pressure Mean: 113 Departure Impression Primary Impression: Misuse of medication Additional Impression: Anxiety Disposition: HOME, SELF-CARE Condition: Stable Departure-Patient Inst. Decision time for Depature: 17:25 Referrals: RAYNE HARRIS MD (PCP/Family) Primary Care Physician Patient Instructions: ALCOHOL AND SUBSTANCE ABUSE, Prescription Drug Abuse (DC) Add. Discharge Instructions: Use Vistaril 1 or 2 tablets every 8 hours for anxiety. Find a form of distraction that works good for you, walking, puzzles, word searches, meditation. Take medications as prescribed by Dr. Harris. Call Dr. Harris on Monday for follow-up. Increase water intake, 16 ounces every 1-2 hours while awake. You can take a cold shower every hour as needed. Go to [facility] walk in tomorrow, if symptoms worsen. Return to the emergency department for new, urgent healthcare needs. All discharge instructions reviewed with patient and/or family. Voiced understanding. Scripts Hydroxyzine Pamoate (Vistaril) 25 Mg Capsule 25 MG PO Q8H PRN for ANXIETY, #20 CAP 0 Refills Prov: MARI RAMIREZ 11/27/21 Copy Copies To 1: RAYNE HARRIS MD, AMY ARNP Nov 27, 2021 17:10
[2021-11-27 17:14] LABS: BILIRUBIN,URINE NEGATIVE (NEGATIVE); CLARITY,URINE CLEAR; COLOR,URINE YELLOW; GLUCOSE, URINE (UA) NEGATIVE (NEGATIVE); KETONES,URINE NEGATIVE (NEGATIVE); LEUKOCYTE ESTERASE ,URINE NEGATIVE (NEGATIVE); NITRITE,URINE NEGATIVE (NEGATIVE); PROTEIN,URINE NEGATIVE (NEGATIVE)
[2021-11-27 17:21] LABS: BACTERIA,URINE NEGATIVE /HPF
[2021-11-27 17:24] LABS: AMPHETAMINE SCREEN, URINE NEGATIVE (NEGATIVE); BARBITURATE SCREEN URINE NEGATIVE (NEGATIVE); BENZODIAZEPINES SCREEN URINE NEGATIVE (NEGATIVE); CANNABINOID SCREEN, URINE NEGATIVE (NEGATIVE); COCAINE SCREEN URINE NEGATIVE (NEGATIVE); METHADONE STAT NEGATIVE (NEGATIVE); METHAMPHETAMINE SCREEN URINE S NEGATIVE (NEGATIVE); OPIATE SCREEN URINE NEGATIVE (NEGATIVE); OXYCODONE STAT NEGATIVE (NEGATIVE); PROPOXYPHENE STAT NEGATIVE (NEGATIVE); TRICYCLIC ANTIDEPRESSANTS SCRE NEGATIVE (NEGATIVE)
[2021-11-27] MEDS ORDERED: hydrOXYzine (VISTARIL/ATARAX) 25 MG capsule/tablet PO STA (17:24)
[2021-11-27] MEDS ORDERED: HYDR25CA PO (17:28)
[2021-11-27 17:45] VITALS: BP 132/79
== END 2021-11-27 17:45 | disposition home or self-care (01) ==
LOC: EDUNIT# 16:20 → ER 16:23
DX: F11.24 Opioid dependence with opioid-induced mood disorder (principal); F41.9 Anxiety disorder, unspecified; F17.210 Nicotine dependence, cigarettes, uncomplicated
CPT/HCPCS: 36415; 80306; 80307; 81000; 99283

== ENCOUNTER 2022-06-17 19:18 | Emergency (ER) | payer SELFPAY ==
[~2022-06-17] VITALS: Ht 175.3 cm; Wt 65.3 kg
[~2022-06-17 19:18] MED LIST changes: +ALBU8.5H6 IH; +HYDR25CA PO; -RT-ALBUINH IH
[2022-06-17 19:28] VITALS: BP 126/65
--- NOTE | 2022-06-17 19:57 | ED Hip Pain/Injury ---
General Chief Complaint: Hip/Pelvic Problems Stated Complaint: FALL - RIGHT HIP PAIN Nursing Triage Note: pt to room by wheelchair with pt . states she tripped on her cat 3 days ago, fell down one porch step and landed on her wooden porch. states she landed on her right hip, hit her right arm, and right side of head. denies head, neck pain, or LOC. denies use of blood thinners. states she has been taking ibuprofen and tylenol for pain and walking with a cane Source: patient Exam Limitations: no limitations History of Present Illness Date Seen by Provider: Jun 17, 2022 Time Seen by Provider: 19:52 Initial Comments To ER with c/o right hip pain after a fall 4 days ago down 1 step at home. Did hit head, No LOC no neck pain no headache, no OAC use. Has ongoing right lateral hip pain and bruising as well as right upper arm pain. Timing/Duration: constant Severity: moderate Location: hip (R) Method of Injury: direct blow, fell Allergies and Home Medications Allergies Coded Allergies: aspirin (Verified Allergy, Unknown, HIVES, CAN TAKE IBUPROFEN, 12/11/20) Patient Home Medication List Home Medication List Reviewed: Yes Albuterol Sulfate (Ventolin Hfa) 1 Puff Puff, 2 PUFF IH Q4H PRN for WHEEZING, (Reported) Entered as Reported by: AKIKO ENCISO on 08/26/19 1025 Celecoxib (Celebrex) Unknown Strength Capsule, 1 TAB PO DAILY, (Reported) Entered as Reported by: AKIKO ENCISO on 08/26/19 1025 Cyclobenzaprine HCl (Cyclobenzaprine HCl) 10 Mg Tablet, 10 MG PO Q8H PRN for SPASMS Prescribed by: PETER AMOR on 10/15/21 0140 Doxycycline Hyclate (Doxycycline Hyclate) 100 Mg Tablet, 100 MG PO BID Prescribed by: BRIAN ULLOA on 12/11/20 2333 Esomeprazole Magnesium (Esomeprazole Magnesium) 40 Mg Capsule.dr, 40 MG PO DAILY, (Reported) Entered as Reported by: AKIKO ENCISO on 08/26/19 1020 Fluticasone/Salmeterol (Advair 250-50 Diskus) 1 Each Blst.w.dev, 1 EACH IH DAILY, (Reported) Entered as Reported by: AKIKO ENCISO on 08/26/19 1025 Hydrocodone Bit/Acetaminophen (Lortab 5 Mg Tablet) 1 Tab Tab, 1 TAB PO Q6H PRN for PAIN-MODERATE Prescribed by: BRANDY SORENSON on 08/28/19 1124 Hydrocodone/Acetaminophen (Hydrocodone-Acetamin 5-325 mg) 1 Each Tablet, 1 TAB PO Q4H PRN for PAIN-MODERATE (5-7) Prescribed by: JANELLE BAIG on 10/15/21 1138 Hydroxyzine Pamoate (Vistaril) 25 Mg Capsule, 25 MG PO Q8H PRN for ANXIETY Prescribed by: MARI RAMIREZ on 11/27/21 1728 Lactobacillus Acidophilus (Acidophilus) 1 Each Capsule, 1 EACH PO DAILY, (Reported) Entered as Reported by: AKIKO ENCISO on 08/26/19 1020 Naproxen (Naprosyn) 500 Mg Tablet, 500 MG PO BID Prescribed by: PETER AMOR on 10/15/21 0140 Potassium Chloride (Potassium Chloride) 20 Meq Tablet.er, 20 MEQ PO BID Prescribed by: JANELLE BAIG on 10/15/21 1138 Review of Systems Constitutional: see HPI EENTM: see HPI Respiratory: no symptoms reported Cardiovascular: no symptoms reported Genitourinary: no symptoms reported Musculoskeletal: see HPI, back pain Skin: no symptoms reported Psychiatric/Neurological: No Symptoms Reported Past Olnvqsy-Hddbqv-Guyrjc Hx Immunizations Up To Date Tetanus Booster (TDap): Unknown First/Initial COVID19 Vaccinat: 08/28 Second COVID19 Vaccination Bobby: 08/28 Third COVID19 Vaccination Date: 08/28 Seasonal Allergies Seasonal Allergies: No Past Medical History Surgery/Hospitalization HX: hysterectomy, copd, gerd Surgeries: Yes Hysterectomy Respiratory: Yes COPD Currently Using CPAP: No Currently Using BIPAP: No Cardiac: No Neurological: No 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 0.0oz. [id number]; 21.00 BMI Method: General Appearance: No Apparent Distress, WD/WN Neck: Full Range of Motion, Normal Inspection Respiratory: Lungs Clear, Normal Breath Sounds, No Accessory Muscle Use, No Respiratory Distress Gastrointestinal: Normal Bowel Sounds, Non Tender, Soft Extremity: Normal Capillary Refill, Other (Hematoma right outer upper arm brownish in color. Right lateral hip over the greater trochanter has a large palpable hematoma without erythema. Purplish in color.) Neurologic/Psychiatric: Alert, Oriented x3 Skin: Normal Color, Warm/Dry Progress/Results/Core Measures Results/Orders My Orders Orders - JANELLE BAIG APRN Shoulder, Right, 3 Views (06/17/22 19:46) Pelvis With Right Hip 2-3views (06/17/22 19:46) Rx-Hydrocodone/Apap 5-325 Mg (Rx-Vicodin (06/17/22 21:15) Vital Signs/I&O 06/17/22 19:28 Temp 36.4 Pulse 71 Resp 24 B/P (MAP) 126/65 (85) Pulse Ox 99 Blood Pressure Mean: 85 Departure Impression Primary Impression: Hematoma of right hip Disposition: 01 HOME, SELF-CARE Condition: Stable Departure-Patient Inst. Decision time for Depature: 19:58 Referrals: RAYNE HARRIS MD (PCP/Family) Primary Care Physician Patient Instructions: HEMATOMA Add. Discharge Instructions: All discharge instructions reviewed with patient and/or family. Voiced understanding. JANELLE BAIG APRN Jun 17, 2022 19:57
--- NOTE | 2022-06-17 20:28 | Diagnostic Imaging Report ---
Indication: Right shoulder injury 3 views of the right shoulder show no fracture, dislocation or other acute abnormalities. IMPRESSION: Negative right shoulder Dictated by: Dictated on workstation # [id number]
--- NOTE | 2022-06-17 20:29 | Diagnostic Imaging Report ---
Indication: Right hip injury from a fall AP view pelvis and 2 views of the right hip show no fracture or dislocation. IMPRESSION: Negative pelvis and right hip Dictated by: Dictated on workstation # [id number]
== END 2022-06-17 21:10 | disposition home or self-care (01) ==
LOC: EDUNIT# 19:18 → ER 19:18
DX: S70.01XA Contusion of right hip, initial encounter (principal); W10.8XXA Fall (on) (from) other stairs and steps, initial encounter; Y92.009 Unspecified place in unspecified non-institutional (private) residence as the place of occurrence of the external cause
CPT/HCPCS: 73030